=== PATIENT | female | born 1930 | race Caucasian/White ===

== ENCOUNTER 2017-06-23 06:27 | Inpatient (IN) | payer MEDICARE, BC ==
[2017-06-17 16:16] LABS: BASOPHILS % (AUTO) 0.6 % (0-1); EOSINOPHILS # (AUTO) 0.1 X10'3 (0-0.9); EOSINOPHILS % (AUTO) 2.4 % (0-6); LYMPHOCYTES # (AUTO) 1.3 X10'3 (1.1-4.8); LYMPHOCYTES % (AUTO) 27.2 % (21-51); MEAN CORPUSCULAR HEMOGLOBIN 29.6 PG (27.0-31.0); MEAN CORPUSCULAR HGB CONC 33.6 % (33.0-36.5); MEAN CORPUSCULAR VOLUME 88.3 FL (78-98); MEAN PLATELET VOLUME 8.2 FL (7.4-10.4); MONOCYTES # (AUTO) 0.5 X10'3 (0-0.9); MONOCYTES % (AUTO) 10.4 % (2-12); NEUTROPHILS # (AUTO) 2.8 X10'3 (1.8-7.7); NEUTROPHILS % (AUTO) 59.4 % (42-75); PRE OP HEMOGLOBIN 11.4 g/dL (12.0-16.0); PRE OP PLATELET COUNT 199 X10'3 (140-440); RED BLOOD COUNT 3.85 X10'6 (4.20-5.60); RED CELL DISTRIBUTION WIDTH 15.2 % (11.5-14.5)
[2017-06-17 16:17] LABS: CLARITY,URINE SLIGHTLY CLOUDY (Clear); COLOR,URINE YELLOW (Yellow); GLUCOSE, URINE NEGATIVE (Neg); KETONES,URINE NEGATIVE (Neg); LEUKOCYTE ESTERASE ,URINE SMALL (Neg); NITRITES, URINE NEGATIVE (Neg); OCCULT BLOOD,URINE NEGATIVE (Neg); PROTEIN,URINE NEGATIVE (Neg); UROBILINOGEN,URINE 0.2 E.U/dL (0.2-1.0)
[2017-06-17 16:19] LABS: UA COLLECTION TYPE CLN CATCH MIDSTREAM
[2017-06-17 16:28] LABS: PRE OP PROTIME 10.8 SECONDS (9.0-12.0)
[2017-06-17 16:29] LABS: HEMOGLOBIN A1C 7.2 % (4.5-6.2)
[2017-06-17 16:35] LABS: ALBUMIN 4.2 G/DL (3.4-5.0); ALBUMIN/GLOBULIN RATIO 1.1 (1.1-1.5); ALKALINE PHOSPHATASE 85 IU/L (46-116); BLOOD UREA NITROGEN 14 MG/DL (7-18); BUN/CREATININE RATIO 18.4 (6.6-38.0); CALCIUM 9.1 MG/DL (8.5-10.1); CHLORIDE 96 MMOL/L (99-107); CREATININE 0.76 MG/DL (0.40-0.90); PRE OP ALT 20 U/L (30-65); PRE OP ANION GAP 11 (8-16); PRE OP AST 24 U/L (10-37); PRE OP BILIRUB, TOTAL 0.6 MG/DL (0.0-1.0); PRE OP GLUCOSE 79 MG/DL (70-104); PRE OP POTASSIUM 4.1 MMOL/L (3.4-5.1); PRE OP SODIUM 134 MMOL/L (135-145); TOTAL CARBON DIOXIDE 27.4 MMOL/L (24-32); TOTAL PROTEIN 7.9 G/DL (6.4-8.2); eGFR 72 ML/MIN
[2017-06-17 16:37] LABS: MUCUS STRANDS FEW /LPF (Neg); SQUAMOUS EPITHELIAL CELL,UR MODERATE /LPF (FEW); TRANSITIONAL EPI CELLS,URINE MODERATE /HPF
[2017-06-17 16:38] LABS: BACTERIA,URINE 2+ /HPF (Neg); RBC,URINE 0-2 /HPF (0-2); WBC,URINE 0-4 /HPF (0-4)
[2017-06-23] VITALS (18 sets, daily range): BP systolic 102–148; BP diastolic 47–84
[~2017-06-23] VITALS: Ht 162.6 cm; Wt 64.0 kg
[~2017-06-23 06:27] MED LIST: CA C1TAB89 PO; CARV-50 PO; FURO-150 PO; INSU100V23 SQ; METF500T PO; NPH,100V2 SQ; POTA20TA19 PO; VANCOMYCIN INJ 1000 MG in NORMAL SALINE 250ml IV.SOLN IV ONE; [UNRECOGNIZED DRUG - OTHER] PO; acetaminophen 325mg tablet PO ONE; cefazolin/dext.iso 2gm/50ml 50 ML IV ONE; famotidine 20mg tablet PO ONE; gabapentin 300mg capsule PO ONE; metoclopramide 5 mg/ml inj IV ONE; oxyCODONE SR 10mg (sust. release) tab PO ONE; ringers solution, lacted 1,000 ML IV SCH; tranexamic acid inj. 1,000 MG in normal saline 100ml IV soln 90 ML IV ONE
[2017-06-23] MEDS ORDERED: LIDOcaine 1% (10mg/ml) 2ml vial ONE (07:05)
[2017-06-23] MEDS ORDERED: fentaNYL/PF 50MCG/1 ML 2ML syringe ONE (09:41)
[2017-06-23] MEDS ORDERED: MIDAZolam 5mg/5ml vial ONE (09:57)
[2017-06-23] MEDS ORDERED: ePHEDrine 50MG/ML INJ. ONE (10:10)
[2017-06-23] MEDS ORDERED: ketorolac trometh. 30mg/ml inj. ONE (10:39)
[2017-06-23] MEDS ORDERED: MORPHINE SULFATE/PF 0.5 MG/ML 10ML AMPUL ONE (10:39)
[2017-06-23] MEDS ORDERED: ROPIVAcaine 0.5% (5mg/ml) 30ml vial ONE ×2 (10:40→12:22)
[2017-06-23] MEDS ORDERED: vancomycin 1,000mg inj ONE (10:41)
[2017-06-23] MEDS ORDERED: ringers solution, lacted 1,000 ML IV SCH (12:13)
[2017-06-23] MEDS ORDERED: meperidine/PF 50mg/ml syringe IV PRN ×3 (12:15)
[2017-06-23] MEDS ORDERED: ondansetron/PF 4mg/2ml inj IV PRN (12:15)
[2017-06-23] MEDS ORDERED: proCHLORperazine 10 MG/2 ml inj IV PRN (12:15)
[2017-06-23] MEDS ORDERED: morphine 2 MG/ML inj. syringe IV PRN ×2 (12:15)
[2017-06-23] MEDS ORDERED: magnesium hydroxide 30ml (MOM) UD suspension PO PRN (12:20)
[2017-06-23] MEDS ORDERED: oxyCODONE IR 5mg (immed. release) tablet PO PRN (12:20)
[2017-06-23] MEDS ORDERED: bisacodyl 10mg suppository rectal RC PRN (12:20)
[2017-06-23] MEDS ORDERED: diphenhydrAMINE 25mg capsule PO PRN ×2 (12:20)
[2017-06-23] MEDS ORDERED: acetaminophen 325mg tablet PO PRN (12:20)
[2017-06-23] MEDS ORDERED: propofol inj 20 ML IV ONE (12:22)
[2017-06-23] MEDS: gabapentin 300mg capsule PO SCH ×2 (13:00→20:21)
[2017-06-23] MEDS: acetaminophen 325mg tablet PO SCH ×2 (14:00→20:21)
[2017-06-23] MEDS: clindamycin 600mg/D5W 50ml 50 ML IV SCH ×2 (14:49→19:45)
[2017-06-23] MEDS ORDERED: TRANEXAMIC ACID IV ONE (15:30)
[2017-06-23] MEDS ORDERED: NORMAL SALINE IV ONE (15:30)
[2017-06-23] MEDS: potassium cl 20mEq in 1/2 NS 1,000 ML IV SCH ×2 (16:58→20:20)
[2017-06-23] MEDS: INSULIN NPH SUBCUT SCH ×2 (19:35→21:00)
[2017-06-23] MEDS: INSULIN LISPRO SUBCUT SCH ×2 (19:35→21:00)
[2017-06-23] MEDS ORDERED: vancomycin/NS 1 GM ADD-VANTAGE 250 ML IV SCH (20:00)
[2017-06-23] MEDS: carVEDilol 12.5mg tablet PO SCH (20:21)
[2017-06-23] MEDS: celeCOXIB 100mg capsule PO SCH (20:22)
[2017-06-23] MEDS: sennosides 8.6mg tablet PO SCH (20:22)
[2017-06-23] MEDS: potassium Cl 20 mEq SR tablet PO SCH (20:22)
[2017-06-23] MEDS: furosemide 20MG tablet PO SCH (20:22)
[2017-06-23] MEDS: ondansetron/PF 4mg/2ml inj IV PRN (20:33)
[2017-06-23] MEDS: metFORMIN 500mg tablet PO SCH (21:00)
[2017-06-24 02:00] VITALS: BP 129/51
[2017-06-24] MEDS: acetaminophen 325mg tablet PO SCH ×4 (02:00→20:25)
[2017-06-24 05:00] VITALS: BP 103/52
[2017-06-24] MEDS: oxyCODONE IR 5mg (immed. release) tablet PO PRN ×3 (05:23→17:41)
[2017-06-24] MEDS: potassium cl 20mEq in 1/2 NS 1,000 ML IV SCH (05:23)
[2017-06-24 06:40] LABS: BASOPHILS % (AUTO) 0.2 % (0-1); EOSINOPHILS % (AUTO) 0.9 % (0-6); HEMATOCRIT 26.5 % (35.0-45.0); LYMPHOCYTES # (AUTO) 0.6 X10'3 (1.1-4.8); LYMPHOCYTES % (AUTO) 10.6 % (21-51); MEAN CORPUSCULAR VOLUME 88.3 FL (78-98); MEAN PLATELET VOLUME 8.6 FL (7.4-10.4); MONOCYTES # (AUTO) 0.5 X10'3 (0-0.9); MONOCYTES % (AUTO) 9.5 % (2-12); NEUTROPHILS # (AUTO) 4.4 X10'3 (1.8-7.7); NEUTROPHILS % (AUTO) 78.8 % (42-75); PLATELET COUNT 133 X10'3 (140-440); RED BLOOD COUNT 3.01 X10'6 (4.20-5.60); RED CELL DISTRIBUTION WIDTH 15.5 % (11.5-14.5); WHITE BLOOD COUNT 5.6 X10'3 (4.5-11.0)
[2017-06-24 06:46] LABS: ANION GAP 7 (8-16); CHLORIDE 98 MMOL/L (99-107); POTASSIUM 5.8 MMOL/L (3.5-5.1); SODIUM 132 MMOL/L (135-145); TOTAL CARBON DIOXIDE 27.4 MMOL/L (24-32)
[2017-06-24] MEDS: potassium Cl 20 mEq SR tablet PO SCH ×2 (07:36→20:00)
[2017-06-24] MEDS: VIT PO SCH (07:39)
[2017-06-24] MEDS: carVEDilol 12.5mg tablet PO SCH ×2 (07:39→20:25)
[2017-06-24] MEDS: celeCOXIB 100mg capsule PO SCH ×2 (07:43→20:25)
[2017-06-24] MEDS: sodium chloride 0.45% 1,000 ML IV SCH ×2 (07:43→21:19)
[2017-06-24] MEDS: metFORMIN 500mg tablet PO SCH ×2 (07:44→20:25)
[2017-06-24] MEDS: enoxaparin 30mg/0.3ml syringe SQ SCH (07:44)
[2017-06-24] MEDS: gabapentin 300mg capsule PO SCH ×3 (07:44→20:26)
[2017-06-24] MEDS: NPH, human insulin isophane inj. SQ SCH (07:51)
[2017-06-24] MEDS: furosemide 20MG tablet PO SCH ×2 (07:57→20:25)
[2017-06-24 10:00] VITALS: BP 107/45
[2017-06-24] MEDS: ondansetron/PF 4mg/2ml inj IV PRN (13:38)
[2017-06-24 14:00] VITALS: BP 100/69
[2017-06-24 18:00] VITALS: BP 104/41
[2017-06-24] MEDS: NUT.TX.GLUC.INTOLER,LAC-FR,REG (BOOST GLUCOSE CONTROL) 237 ML PO SCH (18:00)
[2017-06-24] MEDS: sennosides 8.6mg tablet PO SCH (20:25)
[2017-06-24] MEDS: INSULIN NPH SUBCUT SCH (21:19)
[2017-06-24] MEDS: INSULIN LISPRO SUBCUT SCH (21:19)
[2017-06-24 22:00] VITALS: BP 109/70
[2017-06-25] MEDS: acetaminophen 325mg tablet PO SCH ×2 (02:00→07:46)
[2017-06-25] MEDS: oxyCODONE IR 5mg (immed. release) tablet PO PRN ×3 (05:09→16:22)
[2017-06-25 05:30] VITALS: BP 110/67
[2017-06-25 06:55] LABS: BASOPHILS % (AUTO) 0.3 % (0-1); EOSINOPHILS # (AUTO) 0.2 X10'3 (0-0.9); EOSINOPHILS % (AUTO) 3.5 % (0-6); HEMATOCRIT 26.5 % (35.0-45.0); HEMOGLOBIN 8.9 g/dl (12.0-16.0); LYMPHOCYTES # (AUTO) 0.6 X10'3 (1.1-4.8); LYMPHOCYTES % (AUTO) 10.7 % (21-51); MEAN CORPUSCULAR HEMOGLOBIN 30.1 PG (27.0-31.0); MEAN CORPUSCULAR HGB CONC 33.6 % (33.0-36.5); MEAN CORPUSCULAR VOLUME 89.4 FL (78-98); MEAN PLATELET VOLUME 8.4 FL (7.4-10.4); MONOCYTES # (AUTO) 0.7 X10'3 (0-0.9); MONOCYTES % (AUTO) 11.7 % (2-12); NEUTROPHILS # (AUTO) 4.2 X10'3 (1.8-7.7); NEUTROPHILS % (AUTO) 73.8 % (42-75); PLATELET COUNT 132 X10'3 (140-440); RED BLOOD COUNT 2.97 X10'6 (4.20-5.60); RED CELL DISTRIBUTION WIDTH 15.5 % (11.5-14.5); WHITE BLOOD COUNT 5.7 X10'3 (4.5-11.0)
[2017-06-25 07:25] LABS: ALBUMIN 3.2 G/DL (3.4-5.0); ANION GAP 6 (8-16); BLOOD UREA NITROGEN 34 MG/DL (7-18); BUN/CREATININE RATIO 24.6 (6.6-38.0); CALCIUM 8.2 MG/DL (8.5-10.1); CHLORIDE 93 MMOL/L (99-107); CREATININE 1.38 MG/DL (0.40-0.90); GLUCOSE 152 MG/DL (70-104); POTASSIUM 5.5 MMOL/L (3.5-5.1); SODIUM 125 MMOL/L (135-145); TOTAL CARBON DIOXIDE 26.3 MMOL/L (24-32); eGFR 36 ML/MIN
[2017-06-25] MEDS: gabapentin 300mg capsule PO SCH ×3 (07:45→20:42)
[2017-06-25] MEDS: carVEDilol 12.5mg tablet PO SCH ×2 (07:45→20:42)
[2017-06-25] MEDS: furosemide 20MG tablet PO SCH ×2 (07:45→20:39)
[2017-06-25] MEDS: enoxaparin 30mg/0.3ml syringe SQ SCH (07:45)
[2017-06-25] MEDS: potassium Cl 20 mEq SR tablet PO SCH ×2 (07:46→20:00)
[2017-06-25] MEDS: metFORMIN 500mg tablet PO SCH ×2 (07:46→20:42)
[2017-06-25] MEDS: VIT PO SCH (07:46)
[2017-06-25] MEDS: celeCOXIB 100mg capsule PO SCH ×2 (07:47→20:42)
[2017-06-25] MEDS: NPH, human insulin isophane inj. SQ SCH (07:51)
[2017-06-25] MEDS: NUT.TX.GLUC.INTOLER,LAC-FR,REG (BOOST GLUCOSE CONTROL) 237 ML PO SCH ×3 (08:09→18:00)
[2017-06-25] MEDS: sodium chloride 0.45% 1,000 ML IV SCH ×2 (09:40→23:00)
[2017-06-25 10:00] VITALS: BP 109/38
[2017-06-25] MEDS ORDERED: acetaminophen 325mg tablet PO PRN (12:20)
[2017-06-25 18:00] VITALS: BP 142/75
[2017-06-25] MEDS: sennosides 8.6mg tablet PO SCH (20:42)
[2017-06-25] MEDS: INSULIN LISPRO SUBCUT SCH (20:43)
[2017-06-25] MEDS: INSULIN NPH SUBCUT SCH (20:43)
[2017-06-25 20:56] VITALS: BP 143/70
[2017-06-25 22:00] VITALS: BP 125/64
[2017-06-26] MEDS: oxyCODONE IR 5mg (immed. release) tablet PO PRN ×3 (02:32→11:46)
[2017-06-26 05:00] VITALS: BP 95/77
[2017-06-26 06:38] LABS: ALBUMIN 3.1 G/DL (3.4-5.0); ANION GAP 5 (8-16); BLOOD UREA NITROGEN 31 MG/DL (7-18); BUN/CREATININE RATIO 30.1 (6.6-38.0); CALCIUM 8.4 MG/DL (8.5-10.1); CHLORIDE 93 MMOL/L (99-107); CREATININE 1.03 MG/DL (0.40-0.90); GLUCOSE 141 MG/DL (70-104); POTASSIUM 5.1 MMOL/L (3.5-5.1); SODIUM 125 MMOL/L (135-145); TOTAL CARBON DIOXIDE 27.4 MMOL/L (24-32); eGFR 50 ML/MIN
[2017-06-26 06:42] LABS: BASOPHILS % (AUTO) 0.2 % (0-1); EOSINOPHILS # (AUTO) 0.1 X10'3 (0-0.9); EOSINOPHILS % (AUTO) 2.5 % (0-6); HEMATOCRIT 26.8 % (35.0-45.0); HEMOGLOBIN 9.3 g/dl (12.0-16.0); LYMPHOCYTES # (AUTO) 0.7 X10'3 (1.1-4.8); MEAN CORPUSCULAR HEMOGLOBIN 30.3 PG (27.0-31.0); MEAN CORPUSCULAR HGB CONC 34.7 % (33.0-36.5); MEAN CORPUSCULAR VOLUME 87.3 FL (78-98); MEAN PLATELET VOLUME 8.7 FL (7.4-10.4); MONOCYTES # (AUTO) 0.7 X10'3 (0-0.9); MONOCYTES % (AUTO) 12.7 % (2-12); NEUTROPHILS % (AUTO) 72.6 % (42-75); PLATELET COUNT 134 X10'3 (140-440); RED BLOOD COUNT 3.07 X10'6 (4.20-5.60); RED CELL DISTRIBUTION WIDTH 15.7 % (11.5-14.5); WHITE BLOOD COUNT 5.6 X10'3 (4.5-11.0)
[2017-06-26] MEDS: potassium Cl 20 mEq SR tablet PO SCH (07:10)
[2017-06-26] MEDS: carVEDilol 12.5mg tablet PO SCH (07:10)
[2017-06-26] MEDS: furosemide 20MG tablet PO SCH (07:11)
[2017-06-26] MEDS: VIT PO SCH (07:12)
[2017-06-26] MEDS: celeCOXIB 100mg capsule PO SCH (07:14)
[2017-06-26] MEDS: metFORMIN 500mg tablet PO SCH (07:14)
[2017-06-26] MEDS: gabapentin 300mg capsule PO SCH ×2 (07:14→12:52)
[2017-06-26] MEDS: enoxaparin 30mg/0.3ml syringe SQ SCH (07:15)
[2017-06-26] MEDS: NPH, human insulin isophane inj. SQ SCH (07:17)
[2017-06-26] MEDS: NUT.TX.GLUC.INTOLER,LAC-FR,REG (BOOST GLUCOSE CONTROL) 237 ML PO SCH (08:00)
[2017-06-26 10:00] VITALS: BP 122/44
[2017-06-26] MEDS: sodium chloride 0.45% 1,000 ML IV SCH (10:04)
== END 2017-06-26 14:00 | DRG 470 ==
LOC: PAS IN 06:27 → EDSTATUS 08:30 → ORTHO 4S 14:30
PROVIDERS: ADMIT Orthopaedic Surgery; ATTEND Nurse Practitioner Family
PROC: 0SRD069 Replacement of Left Knee Joint with Oxidized Zirconium on Polyethylene Synthetic Substitute, Cemented, Open Approach (ICD-10-PCS; principal; 2017-06-23 09:35)
DX: M17.12 Unilateral primary osteoarthritis, left knee (principal); D50.0 Iron deficiency anemia secondary to blood loss (chronic); E11.9 Type 2 diabetes mellitus without complications; E87.1 Hypo-osmolality and hyponatremia; I10 Essential (primary) hypertension; I25.10 Atherosclerotic heart disease of native coronary artery without angina pectoris; Z88.0 Allergy status to penicillin; Z95.1 Presence of aortocoronary bypass graft; Z90.710 Acquired absence of both cervix and uterus
CPT/HCPCS: 36415; 71046; 80048; 80051; 80053; 81001; 82948; 83036; 85025; 85610; 85730; 87070; 87077; 87088; 87186; 97110; 97116; 97162; 97530; A6455; A7000; C1713; C1758; C1776; C9250; J0690; J1650; J1815; J1885; J2250; J2274; J2405; J2704; J2795; J3010; J3370; J3490; J7030; J7120

== ENCOUNTER 2018-01-31 10:40 | Outpatient (CLI) | payer MEDICARE, BC ==
[~2018-01-31 10:40] MED LIST changes: +ALPR0.252 PO; -VANCOMYCIN INJ 1000 MG in NORMAL SALINE 250ml IV.SOLN IV ONE; -acetaminophen 325mg tablet PO ONE; -cefazolin/dext.iso 2gm/50ml 50 ML IV ONE; -famotidine 20mg tablet PO ONE; -gabapentin 300mg capsule PO ONE; -metoclopramide 5 mg/ml inj IV ONE; -oxyCODONE SR 10mg (sust. release) tab PO ONE; -ringers solution, lacted 1,000 ML IV SCH; -tranexamic acid inj. 1,000 MG in normal saline 100ml IV soln 90 ML IV ONE
== END 2018-01-31 23:59 | disposition home or self-care (01) ==
LOC: CARD DIAG 10:40
PROVIDERS: ATTEND Internal Medicine Cardiovascular Disease
DX: I08.1 Rheumatic disorders of both mitral and tricuspid valves (principal); I11.0 Hypertensive heart disease with heart failure; I50.9 Heart failure, unspecified; I48.91 Unspecified atrial fibrillation; E11.9 Type 2 diabetes mellitus without complications; Z95.1 Presence of aortocoronary bypass graft; Z95.0 Presence of cardiac pacemaker; Z96.653 Presence of artificial knee joint, bilateral; Z90.710 Acquired absence of both cervix and uterus
CPT/HCPCS: 93306